=== PATIENT | female | born 1985 | race Caucasian/White ===

== ENCOUNTER 2018-06-05 22:45 | Emergency (ER) | payer OTHER ==
[2018-06-05 23:50] LABS: BASOPHIL % 0.3 % (0-2); RED CELL DISTRIBUTION WIDTH 14.1 % (11.5-14.5)
[2018-06-05 23:51] LABS: PLATELET COUNT 442 x10^3mcL (130-400)
[2018-06-06] LABS: CALCIUM 8.6 mg/dL (8.5-10.1); CARBON DIOXIDE 20.9 mmol/L (21-32); CHLORIDE SERUM 101 mmol/L (98-107); CREATININE SERUM 1.1 mg/dL (0.6-1.0); GFR1 > 60 mL/min; GLUCOSE SERUM 201 mg/dL (74-106); POTASSIUM SERUM 3.1 mmol/L (3.5-5.1); SODIUM SERUM 137 mmol/L (136-145)
[2018-06-06 00:06] LABS: ALBUMIN 3.5 g/dL (3.4-5.0); ALKALINE PHOSPHATASE 67 U/L (46-116); ALT/SGPT 35 U/L (14-59); AST/SGOT 25 U/L (15-37); BILIRUBIN TOTAL 0.4 mg/dL (0.20-1.00); TOTAL PROTEIN, SERUM 7.8 g/dL (6.4-8.2)
[2018-06-06 04:01] LABS: AMPHETAMINE QUAL UR NONE DETECTED (See below)
[2018-06-06 05:37] LABS: CALCIUM 7.9 mg/dL (8.5-10.1); CARBON DIOXIDE 22.5 mmol/L (21-32); CHLORIDE SERUM 107 mmol/L (98-107); CREATININE SERUM 0.8 mg/dL (0.6-1.0); GFR1 > 60 mL/min; GLUCOSE SERUM 118 mg/dL (74-106); POTASSIUM SERUM 4.1 mmol/L (3.5-5.1); SODIUM SERUM 141 mmol/L (136-145)
[2018-06-06 05:42] LABS: ALKALINE PHOSPHATASE 64 U/L (46-116); ALT/SGPT 31 U/L (14-59); AST/SGOT 24 U/L (15-37); BILIRUBIN TOTAL 0.4 mg/dL (0.20-1.00)
[2018-06-06 05:44] LABS: ALBUMIN 3.2 g/dL (3.4-5.0)
[2018-06-06 07:15] LABS: CHOLESTEROL/HDL RATIO 2.8; MAGNESIUM 1.8 mg/dL (1.8-2.4); PHOSPHOROUS 1.5 mg/dL (2.5-4.9)
[2018-06-06 09:10] VITALS: BP 149/99
[2018-06-06 14:41] LABS: microscopic required? YES; urine erythrocyte 2+ (NEGATIVE)
== END 2018-06-06 13:46 | disposition left against medical advice (07) ==
LOC: ED 22:45 → DU 06-06 06:23 → ED 06-06 06:23
PROVIDERS: Emergency Medicine; General Practice
DX: T43.012A Poisoning by tricyclic antidepressants, intentional self-harm, initial encounter (principal); R00.0 Tachycardia, unspecified; F12.10 Cannabis abuse, uncomplicated; E87.6 Hypokalemia; Y92.89 Other specified places as the place of occurrence of the external cause
CPT/HCPCS: G0480; J2405; J2765; J3480; J3490; J7030

== ENCOUNTER 2019-01-15 11:03 | Emergency (ER) | payer OTHER ==
[~2019-01-15] VITALS: Ht 165.1 cm; Wt 79.8 kg
[2019-01-15 11:09] VITALS: Ht 165.1 cm; Wt 79.8 kg
[2019-01-15 15:12] LABS: CARBON DIOXIDE 25.4 mmol/L (21-32); CHLORIDE SERUM 103 mmol/L (98-107); CREATININE SERUM 0.8 mg/dL (0.6-1.0); GFR1 > 60 mL/min; GLUCOSE SERUM 81 mg/dL (74-106); POTASSIUM SERUM 3.7 mmol/L (3.5-5.1); SODIUM SERUM 139 mmol/L (136-145)
[2019-01-15 15:20] LABS: ALKALINE PHOSPHATASE 64 U/L (46-116); ALT/SGPT 19 U/L (14-59); AST/SGOT 11 U/L (15-37); BILIRUBIN TOTAL 0.34 mg/dL (0.20-1.00); TOTAL PROTEIN, SERUM 7.3 g/dL (6.4-8.2)
[2019-01-15 15:22] LABS: ALBUMIN 3.1 g/dL (3.4-5.0)
[2019-01-15 15:26] LABS: BASOPHIL % 0.4 % (0-2)
[2019-01-15 15:30] LABS: PLATELET COUNT 522 x10^3mcL (130-400)
[2019-01-15 15:37] LABS: microscopic required? YES; urine erythrocyte TRACE (NEGATIVE)
[2019-01-15 16:30] VITALS: BP 129/74
== END 2019-01-15 16:30 | disposition home or self-care (01) ==
LOC: ED 11:03
PROVIDERS: Emergency Medicine
DX: M54.9 Dorsalgia, unspecified (principal); I10 Essential (primary) hypertension; F41.9 Anxiety disorder, unspecified
CPT/HCPCS: J2270; J2405